=== PATIENT | female | born 1995 | race Caucasian/White ===

== ENCOUNTER 2022-02-09 10:55 | Inpatient (IN) ==
[2022-02-09] MEDS ORDERED: OXYTOCIN/LR 20 UNIT/1,000 ML BAG IV ONE (11:37)
[2022-02-09] MEDS ORDERED: METHYLERGONOVINE 0.2 MG/1 ML AMP IM PRN (11:37)
[2022-02-09] MEDS ORDERED: miSOPROStoL 200 MCG TABLET RECTAL PRN (11:37)
[2022-02-09] MEDS ORDERED: CARBOPROST TROMETHAMINE 250 MCG/ML AMP IM PRN (11:37)
[2022-02-09] MEDS ORDERED: TRANEXAMIC ACID 1,000 MG in SODIUM CHLORIDE 0.9% 100 ML IV PRN (11:37)
[2022-02-09 12:15] LABS: Basophils % 0.3 % (0.0-0.8); Eosinophils # 0.1 10*3/uL (0.0-0.87); Hematocrit 35.3 VOL% (35.7-47.0); Hemoglobin 12.2 GM/DL (12.0-16.0); Immature Granulocytes % 0.8 %; Immature Granulocytes Absolute 0.08 #; Lymphocytes # 2.3 10*3/uL (1.4-4.0); Lymphocytes % 22.9 % (21.3-54.2); Mean Corpuscular HGB Conc 34.6 GM/DL (32-36); Mean Corpuscular Volume 94.4 FL (87-102); Mean Platelet Volume 11.7 FL (9.6-12.0); Monocytes # 0.7 10*3/uL (0.11-0.8); Monocytes % 7.2 % (1.7-12.7); Neutrophils % 67.8 % (38.7-73.9); Platelet Count 225 T/CUMM (130-400); Red Blood Count 3.74 MC/CUMM (3.8-5.5); Red Cell Distribution Width 14.1 % (9.3-17.3); White Blood Count 9.8 T/CUMM (4-12)
[2022-02-09 12:30] LABS: INR 0.9; PT Patient Result 9.7 SECS (10.1-12.1); Partial Thromboplastin Time 27.3 SECS (23.7-32.9)
[2022-02-09 12:37] LABS: Alanine Aminotransferase 16 U/L (13-56); Albumin 2.7 G/DL (3.4-5.0); Alkaline Phosphatase 206 U/L (45-117); Aspartate Amino Transferase 21 U/L (0-37); Bilirubin,Total < 0.39 MG/DL (0.20-1.00); Blood Urea Nitrogen 10 MG/DL (7-18); Calcium 8.6 MG/DL (8.5-10.1); Carbon Dioxide 24 MMOL/L (21-32); Chloride 107 MMOL/L (98-107); Glucose 82 MG/DL (74-106); Osmolality,Calculated 270.8 MOS/KG (273-304); Potassium 4.3 MMOL/L (3.5-5.1); Sodium 137 MMOL/L (136-145); Total Protein 6.2 G/DL (6.4-8.2)
[2022-02-09 12:45] LABS: Alanine Aminotransferase 16 U/L (13-56); Albumin 2.7 G/DL (3.4-5.0); Alkaline Phosphatase 209 U/L (45-117); Aspartate Amino Transferase 21 U/L (0-37); Bilirubin,Direct < 0.100 MG/DL (0.0-0.20); Bilirubin,Total < 0.39 MG/DL (0.20-1.00); Blood Urea Nitrogen 9 MG/DL (7-18); Calcium 8.6 MG/DL (8.5-10.1); Carbon Dioxide 24 MMOL/L (21-32); Chloride 106 MMOL/L (98-107); Glucose 81 MG/DL (74-106); Osmolality,Calculated 270.8 MOS/KG (273-304); Potassium 4.3 MMOL/L (3.5-5.1); Sodium 137 MMOL/L (136-145); Total Protein 6.2 G/DL (6.4-8.2); Uric Acid 7.6 MG/DL (2.6-6.0)
[2022-02-09 13:43] LABS: Bacteria,Urine Occasional /HPF (Few); Glucose,Urine (UA) Negative (Negative); Ketones,Urine Negative (Negative); Nitrite,Urine Negative (Negative); Protein,Urine Negative (Negative); RBC,Urine 1 /HPF (0-4); Squamous Epithelial Cell,Urine Occasional /HPF (0-10); Urine Appearance Clear (Clear); Urine Color Yellow (Yellow)
[2022-02-09 13:44] LABS: Bilirubin,Urine Negative (Negative); Blood, Urine Large mg/dL (Negative); Urine Urobilinogen 0.2 eU/dL (<2.0)
[2022-02-09 14:37] LABS: Protein/Creatinine Ratio,Urine 0.3 RATIO
[2022-02-10] MEDS: LACTATED RINGERS 1,000 ML IV SCH ×4 (02:47→22:26)
[2022-02-10] MEDS ORDERED: BUTORPHANOL 1 MG/ML VIAL IV ONE (05:56)
[2022-02-10] MEDS ORDERED: ePHEDrine 50 MG/ML VIAL IV PRN (07:54)
[2022-02-10] MEDS ORDERED: NALOXONE 0.4 MG/ML VIAL IV PRN (07:54)
[2022-02-10] MEDS ORDERED: PROMETHAZINE 25 MG/1 ML VIAL IM PRN (07:54)
[2022-02-10] MEDS ORDERED: hydrOXYzine HCL 25 MG/1 ML VIAL IM PRN (07:54)
[2022-02-10] MEDS ORDERED: diphenhydrAMINE 50 MG/1 ML VIAL IV PRN (07:54)
[2022-02-10] MEDS ORDERED: ONDANSETRON 4 MG/2 ML VIAL IV PRN ×2 (07:54→22:03)
[2022-02-10] MEDS ORDERED: FAMOTIDINE 20 MG/2 ML VIAL IV ONE (07:54)
[2022-02-10] MEDS ORDERED: CITRIC ACID/SODIUM CITRATE 30 ML UDCUP PO ONE (07:54)
[2022-02-10] MEDS ORDERED: OXYTOCIN/LR 20 UNIT/1,000 ML BAG IV SCH (08:00)
[2022-02-10] MEDS: fentaNYL 2 MCG/ROPIV 0.2% EPID 100 ML EPIDURAL SCH ×2 (09:25→17:13)
[2022-02-10 10:21] LABS: RBC,Urine <1 /HPF (0-4)
[2022-02-10 10:23] LABS: Bilirubin,Urine Negative (Negative); Blood, Urine Negative (Negative); Glucose,Urine (UA) Negative (Negative); Ketones,Urine Negative (Negative); Nitrite,Urine Negative (Negative); Protein,Urine Negative (Negative); Urine Appearance Clear (Clear); Urine Color Yellow (Yellow); Urine Specific Gravity 1.025 (1.001-1.035); Urine Urobilinogen 0.2 eU/dL (<2.0); Urine pH 7.5 (4.5-8.0)
[2022-02-10] MEDS ORDERED: TRANEXAMIC ACID 1,000 MG/10 ML VIAL ONE ×2 (14:11→14:15)
[2022-02-10] MEDS ORDERED: miSOPROStoL 200 MCG TABLET ONE (14:11)
[2022-02-10] MEDS ORDERED: SODIUM CHLORIDE 0.9% 0 ML IV ONE (14:12)
[2022-02-10] MEDS ORDERED: OXYTOCIN/LR 0 UNIT/0 ML BAG IV ONE (14:12)
[2022-02-10] MEDS ORDERED: METHYLERGONOVINE 0.2 MG/1 ML AMP ONE (14:12)
[2022-02-10] MEDS ORDERED: CARBOPROST TROMETHAMINE 250 MCG/ML AMP IM ONE (14:12)
[2022-02-10 21:36] LABS: Cord Venous Blood HCO3 21.8 MMOL/L; Cord Venous Blood PCO2 37.2 MMHG; Cord Venous Blood PO2 24.3
[2022-02-10] MEDS ORDERED: HYDROCORTISONE 2.5% RECTAL CREAM 30 GM TUBE TOP PRN (22:03)
[2022-02-10] MEDS ORDERED: BENZOCAINE 20%/MENTHOL 0.5% SPRAY 56 GM CAN TOP PRN (22:03)
[2022-02-10] MEDS ORDERED: LANOLIN 50% CREAM 0.3 OZ TUBE TOP PRN (22:03)
[2022-02-10] MEDS ORDERED: BISACODYL 10 MG SUPP RECTAL PRN (22:03)
[2022-02-10] MEDS ORDERED: RHO(D) IMMUNE GLOBULIN 300 MCG SYRINGE IM ONE (22:03)
[2022-02-10] MEDS ORDERED: MEASLES/MUMPS/RUBELLA VACCINE 0.5 ML VIAL SUBCUT ONE (22:03)
[2022-02-10] MEDS ORDERED: oxyCODONE/ACETAMINOPHEN 5-325 MG TABLET PO PRN ×2 (22:03)
[2022-02-10] MEDS ORDERED: ACETAMINOPHEN 325 MG TABLET PO PRN (22:03)
[2022-02-10] MEDS ORDERED: DIPH/TET/ACEL PERT BOOSTER VACCINE 0.5 ML VIAL IM ONE (22:03)
[2022-02-10] MEDS ORDERED: OXYTOCIN/LR 20 UNIT/1,000 ML BAG IV ONE (22:03)
[2022-02-10] MEDS ORDERED: WITCH HAZEL PADS 100/JAR TOP PRN (22:03)
[2022-02-10] MEDS ORDERED: MEPERIDINE 50 MG/1 ML VIAL IV ONE (22:05)
[2022-02-11 00:43] LABS: Hematocrit 23.2 VOL% (35.7-47.0); Hemoglobin 7.9 GM/DL (12.0-16.0)
[2022-02-11] MEDS ORDERED: SODIUM CHLORIDE 0.9% 1,000 ML IV PRN (02:04)
[2022-02-11] MEDS: IBUPROFEN 800 MG TABLET PO PRN ×3 (02:08→20:59)
[2022-02-11] MEDS: DOCUSATE SODIUM 100 MG CAPSULE PO SCH ×2 (08:59→20:58)
[2022-02-11 11:18] LABS: Basophils # 0.1 10*3/uL (0.0-0.2); Basophils % 0.4 % (0.0-0.8); Eosinophils # 0.1 10*3/uL (0.0-0.87); Eosinophils % 0.4 % (0.00-10.9); Hematocrit 29.7 VOL% (35.7-47.0); Immature Granulocytes % 0.8 %; Immature Granulocytes Absolute 0.16 #; Lymphocytes # 2.8 10*3/uL (1.4-4.0); Mean Corpuscular HGB Conc 34.7 GM/DL (32-36); Mean Corpuscular Volume 93.1 FL (87-102); Mean Platelet Volume 11.5 FL (9.6-12.0); Monocytes # 1.1 10*3/uL (0.11-0.8); Monocytes % 5.2 % (1.7-12.7); Neutrophils % 80.2 % (38.7-73.9); Red Blood Count 3.19 MC/CUMM (3.8-5.5); Red Cell Distribution Width 16.3 % (9.3-17.3); White Blood Count 21.2 T/CUMM (4-12)
[2022-02-11 11:20] LABS: Hemoglobin 10.3 GM/DL (12.0-16.0); Platelet Count 168 T/CUMM (130-400)
[2022-02-11 11:46] LABS: Band Neutrophils 1 % (0-10); Eosinophils 1 % (0-10); Lymphocytes 15 % (20-55); Microcytosis 1+; Total Cells Counted 100
[2022-02-11 11:47] LABS: Platelet Estimate Adequate; Polychromasia Slight
[2022-02-12] MEDS: IBUPROFEN 800 MG TABLET PO PRN (06:16)
[2022-02-12] MEDS: DOCUSATE SODIUM 100 MG CAPSULE PO SCH (08:17)
[2022-02-12 10:34] VITALS: BP 137/81
[2022-02-12] MEDS ORDERED: MEASLES/MUMPS/RUBELLA VACCINE 0.5 ML VIAL SUBCUT ONE (12:06)
== END 2022-02-12 12:45 | disposition home or self-care (01) | DRG 768 ==
LOC: N.LDOUT 10:55 → N.LD 11:01 → N.OB 02-11 01:45
PROVIDERS: ADMIT Obstetrics & Gynecology; ATTEND Obstetrics & Gynecology